=== PATIENT | male | born 1995 | race Caucasian/White ===

== ENCOUNTER 2025-07-21 03:19 | Inpatient (IN) | payer MEDICAID ==
[~2025-07-21] VITALS: Ht 172.7 cm; Wt 61.8 kg
[2025-07-21] VITALS (7 sets, daily range): BP systolic 115–138; BP diastolic 74–88; PULSE 79–94; RESP 16–18; TEMP 97.5–98; O2SAT 97–99
[2025-07-21 05:31] LABS: PLATELET COUNT (AUTO) 244 K/uL (150-450); RED BLOOD CELL COUNT(AUTO) 4.63 MIL/uL (4.50-5.90); RED CELL DISTRIBUTION WIDTH 13.4 % (11.5-14.5); WHITE BLOOD COUNT (AUTO) 7.8 K/uL (4.5-11.0)
[2025-07-21 05:34] LABS: CALCIUM, TOTAL 8.7 mg/dL (8.8-10.5); CREATININE 0.89 mg/dL (0.60-1.30); GLOMERULAR FILTR. RATE CALC > 60 mL/min (>60); GLUCOSE,RANDOM 109 mg/dL (70-110); SODIUM SERUM 142 mmol/L (136-145); UREA NITROGEN, BLOOD 17 mg/dL (7-18)
[2025-07-21 05:59] LABS: COVID AG,FIA SOURCE NASAL SWAB
[2025-07-21 06:28] LABS: SARS-COV2 (COVID) ANTIGEN,FIA Negative (Negative)
[2025-07-21 11:56] LABS: APPEARANCE,URINE CLEAR (CLEAR); GLUCOSE, URINE (UA) NEGATIVE (NEGATIVE); LEUKOCYTE ESTERASE ,URINE NEGATIVE (NEGATIVE); NITRATE,URINE NEGATIVE (NEGATIVE); OCCULT BLOOD,URINE NEGATIVE (NEGATIVE); SPECIFIC GRAVITIY, URINE 1.033 (1.003-1.030)
[2025-07-21 12:01] LABS: ALCOHOL, URINE DRUG SCREEN NEGATIVE (NEGATIVE); AMPHET/METH SCREEN,URINE POSITIVE (NEGATIVE); BARBITURATE SCREEN, URINE NEGATIVE (NEGATIVE); CANNABINOID SCREEN,URINE POSITIVE (NEGATIVE); COCAINE SCREEN,URINE NEGATIVE (NEGATIVE); METHADONE SCREEN, URINE NEGATIVE (NEGATIVE)
[2025-07-21 12:12] LABS: PH,URINE DRUG SCREEN 6.0 (5.0-8.0)
[2025-07-21] MEDS ORDERED: MAG HYDROX/ALUMINUM HYD/SIMETH ES 30 ML SUSPENSION UDCUP PO PRN ×2 (14:30)
[2025-07-21] MEDS ORDERED: ZOLPIDEM TARTRATE 10 MG TABLET PO PRN (14:30)
[2025-07-21] MEDS ORDERED: GuaiFENesin/D-METHORPHAN [SUGAR-FREE] 200-20MG/10 ML SYRUP UDCUP PO PRN (14:30)
[2025-07-21] MEDS ORDERED: MELATONIN 5 MG TABLET PO PRN (14:30)
[2025-07-21] MEDS ORDERED: LOPERAMIDE HCL 2 MG CAPSULE PO PRN (14:30)
[2025-07-21] MEDS ORDERED: IBUPROFEN 600 MG TABLET PO PRN (14:30)
[2025-07-21] MEDS ORDERED: MAGNESIUM HYDROXIDE SUSPENSION 30 ML UDCUP PO PRN (14:30)
[2025-07-21] MEDS ORDERED: PROMETHAZINE HCL 25 MG TABLET PO PRN (14:30)
[2025-07-21] MEDS: THIAMINE 100 MG TABLET PO SCH (17:00)
[2025-07-21] MEDS: DIVALPROEX SODIUM 500 MG ER TABLET PO SCH (17:00)
[2025-07-22] VITALS (9 sets, daily range): BP systolic 119–128; BP diastolic 77–97; PULSE 76–98; RESP 16–18; TEMP 97.5–98.2; O2SAT 98
[2025-07-22] MEDS: MULTIVITAMINS WITH MINERALS, THERAPEUTIC TABLET PO SCH (09:00)
[2025-07-22] MEDS: FOLIC ACID 1 MG TABLET PO SCH (09:00)
[2025-07-22] MEDS: BuPROPion HCL XL 150 MG ER TABLET PO SCH (09:00)
[2025-07-22] MEDS: OLANZapine 5 MG RAPDIS TABLET PO SCH (20:32)
[2025-07-23] MEDS ORDERED: PALIPERIDONE PALMITATE 234 MG/1.5 ML SYRINGE IM ONE (09:00)
[2025-07-23 12:05] VITALS: BP 114/77; PULSE 77; RESP 18; TEMP 98.6; O2SAT 99
[2025-07-23 20:13] VITALS: BP 126/90; PULSE 90; RESP 18; TEMP 98; O2SAT 97
[2025-07-23 20:58] VITALS: BP 126/90; PULSE 90; RESP 18; TEMP 98; O2SAT 97
[2025-07-23] MEDS: OLANZapine 10 MG RAPDIS TABLET PO SCH (20:59)
[2025-07-24 17:07] VITALS: BP 118/79; PULSE 97
[2025-07-24 20:23] VITALS: BP 117/80; PULSE 89; RESP 16; TEMP 97.9; O2SAT 98
[2025-07-25 08:09] VITALS: RESP 19
[2025-07-25] MEDS: BuPROPion HCL XL 150 MG ER TABLET PO SCH (08:21)
[2025-07-25 11:25] VITALS: BP 113/76; PULSE 81; RESP 16
[2025-07-25] MEDS: INFLUENZA VIRUS VACCINE TVS (6MO+) 2025-26/PF 45 MCG/0.5 ML SYRINGE IM. ONE (12:19)
[2025-07-25 16:03] VITALS: BP 106/71; PULSE 88; RESP 16; O2SAT 97
[2025-07-25 20:39] VITALS: BP 109/57; PULSE 84; RESP 18; TEMP 98.4; O2SAT 98
[2025-07-26 08:48] VITALS: RESP 16
[2025-07-26 20:16] VITALS: BP 102/69; PULSE 98; RESP 18; TEMP 97.8; O2SAT 98
[2025-07-27] MEDS ORDERED: PALIPERIDONE PALMITATE 156 MG/ML SYRINGE IM ONE (09:00)
[2025-07-27 12:25] VITALS: BP 97/71; PULSE 81; RESP 18; TEMP 97.6; O2SAT 98
[2025-07-27 16:15] VITALS: BP 108/75; PULSE 77; RESP 18; TEMP 97.6; O2SAT 100
[2025-07-27 21:00] VITALS: RESP 18
[2025-07-28 06:51] VITALS: BP 105/67; PULSE 78
[2025-07-28 08:25] VITALS: BP 99/60; PULSE 83; RESP 17; TEMP 98.4; O2SAT 100
[2025-07-29 08:51] VITALS: BP 115/74; PULSE 84; RESP 17; TEMP 97.7; O2SAT 97
[2025-07-29] MEDS: ATOMOXETINE HCL 10 MG CAPSULE PO SCH (09:23)
[2025-07-29] MEDS ORDERED: GABAPENTIN 300 MG CAPSULE PO PRN (16:45)
[2025-07-29 20:35] VITALS: BP 110/79; PULSE 85; RESP 18; TEMP 98.1; O2SAT 98
[2025-07-30 08:49] VITALS: BP 102/68; PULSE 70; RESP 19; TEMP 98.1; O2SAT 97
[2025-07-30] MEDS: ATOMOXETINE HCL 18 MG CAPSULE PO SCH (09:00)
[2025-07-30 20:14] VITALS: BP 101/70; PULSE 74; RESP 18; TEMP 98.4; O2SAT 96
[2025-07-31 17:03] VITALS: BP 120/81; RESP 18; O2SAT 98
[2025-07-31 20:29] VITALS: BP 132/68; PULSE 72; RESP 18; TEMP 97.7; O2SAT 99
[2025-08-01 06:11] VITALS: BP 126/77; PULSE 79; RESP 18; TEMP 98; O2SAT 98
[2025-08-01 08:05] VITALS: BP 125/82; PULSE 82; RESP 18; TEMP 97.8; O2SAT 95
[2025-08-01] MEDS: ATOMOXETINE HCL 25 MG CAPSULE PO SCH (09:00)
[2025-08-01 20:27] VITALS: BP 123/70; PULSE 93; RESP 18; TEMP 98.9; O2SAT 99
[2025-08-02 08:38] VITALS: BP 100/63; PULSE 72; RESP 18; TEMP 97.1; O2SAT 99
[2025-08-02] MEDS: ATOMOXETINE HCL 40 MG CAPSULE PO SCH (09:00)
[2025-08-02 11:47] VITALS: BP 103/73; RESP 18; O2SAT 99
[2025-08-02 17:16] VITALS: BP 116/91; RESP 17; O2SAT 100
[2025-08-02 20:55] VITALS: BP 105/65; PULSE 74; RESP 18; TEMP 97; O2SAT 97
[2025-08-03 08:22] VITALS: BP 102/66; PULSE 65; RESP 18; TEMP 99; O2SAT 96
[2025-08-03 17:17] VITALS: BP 105/75; RESP 18; O2SAT 96
[2025-08-03 20:44] VITALS: BP 110/69; PULSE 73; RESP 18; TEMP 97.7; O2SAT 98
[2025-08-04 08:28] VITALS: BP 97/65; PULSE 76; RESP 18; TEMP 98.8; O2SAT 96
[2025-08-04 20:38] VITALS: BP 100/63; PULSE 77; RESP 17; TEMP 97.8; O2SAT 98
[2025-08-05 09:00] VITALS: RESP 18
[2025-08-05] MEDS: ATOMOXETINE HCL 60 MG CAPSULE PO SCH (09:09)
[2025-08-05] MEDS: TUBERCULIN, PURIFIED PROTEIN DERIVATIVE 5 TU/0.1 ML SYRINGE ID ONE (09:19)
[2025-08-05] MEDS ORDERED: NALT50TA6 PO (11:30)
[2025-08-05 15:04] VITALS: RESP 18
[2025-08-05] MEDS: ACETAMINOPHEN 325 MG TABLET PO PRN (15:04)
[2025-08-05 16:04] VITALS: RESP 17
[2025-08-05] MEDS: AMOX TR/POT CLAV 500 MG/125 MG TABLET PO SCH (16:32)
[2025-08-05] MEDS: BACITRACIN 28 GM OINTMENT TP SCH (17:28)
[2025-08-05 21:16] VITALS: BP 121/87; PULSE 92; RESP 18; TEMP 98; O2SAT 98
[2025-08-06 08:40] VITALS: BP 107/83; PULSE 96; RESP 17; TEMP 98.6; O2SAT 100
[2025-08-06] MEDS ORDERED: AMOX-426 PO (08:43)
[2025-08-06] MEDS ORDERED: AMOX1TAB15 PO (08:46)
[2025-08-06] MEDS ORDERED: BACI28.410 TP (08:48)
[2025-08-06 09:36] VITALS: RESP 17
[2025-08-06 10:36] VITALS: RESP 17
== END 2025-08-06 11:40 | disposition left against medical advice (07) | DRG 761 ==
LOC: EMS 03:39 → B2S 14:11
PROVIDERS: ADMIT Psychiatry & Neurology Psychiatry; ATTEND Psychiatry & Neurology Psychiatry
PROC: GZHZZZZ Group Psychotherapy (ICD-10-PCS; principal; 2025-07-21)
PROC: GZ51ZZZ Individual Psychotherapy, Behavioral (ICD-10-PCS; 2025-07-21)
DX: F25.9 Schizoaffective disorder, unspecified (principal); F33.2 Major depressive disorder, recurrent severe without psychotic features; R45.851 Suicidal ideations; Z59.02 Unsheltered homelessness; Z91.148 Patient's other noncompliance with medication regimen for other reason; Z20.822 Contact with and (suspected) exposure to COVID-19; F17.200 Nicotine dependence, unspecified, uncomplicated; Z53.29 Procedure and treatment not carried out because of patient's decision for other reasons; F90.9 Attention-deficit hyperactivity disorder, unspecified type
CPT/HCPCS: 80048; 80307; 81003; 85025; 90686; 99285; G0480